=== PATIENT | male | born 1965 | race Caucasian/White ===

== ENCOUNTER 2017-05-21 11:06 | Day surgery (SDC) | payer OTHER ==
[2017-05-20 09:50] VITALS: BMI 50.0
[~2017-05-21 11:06] MED LIST: Lidocaine 1% PF 5 ML VIAL ONE; PROPOFOL 200 MG/20 ML VIAL ONE
[2017-05-21] MEDS ORDERED: Midazolam HCl 2 mg/2 ml Vial ONE (13:03)
--- NOTE | 2017-05-21 16:57 | OP ---
DATE OF PROCEDURE: 05/21/2017 INDICATION FOR PROCEDURE: Screening for malignant neoplasm of the colon, no family history of colon polyps or colon cancer. PROCEDURE: Colonoscopy with biopsy, polypectomy, and submucosal injection. DESCRIPTION OF PROCEDURE: After the risks and benefits of the procedure were explained to the patien t including risk of bleeding, infection, perforation, reaction to anesthesia and/or pain, informed co nsent was obtained. The patient was then taken back to the endoscopy suite where deep sedation was a dministered via propofol and anesthesia support. The standard colonoscope was then introduced into t he rectum with and advanced to the cecum as evidenced by the appendiceal orifice and an ileocecal earle ve. Careful examination of mucosa was then performed upon withdrawal with the findings listed below. The quality of the prep was excellent. The patient tolerated the procedure well with no immediate perioperative complications. STEVEN: Large external hemorrhoids as well as enlarged perianal skin tags noted on external exam. COLON FINDINGS: Normal appearing mucosa was seen at the appendiceal orifice and ileocecal valve, a 4 mm polyp was seen in the cecum adjacent to the appendiceal orifice and completely removed with cold snare polypectomy. The polyp was completely excised and retrieved and placed in a specimen jar for e valuation. A large, 3-4 cm multi-lobed polypoid mass was seen in the proximal ascending colon near t ileocecal valve. Given the size of this particular lesion and increased risk of perforation, en b loc resection was not attempted; instead multiple biopsies were taken of this lesion and placed in a specimen jar for evaluation. Approximately 7 mL of Eladia ink was placed as a tattoo on either side o f this particular lesion for future reference. Normal appearing mucosa was seen in the distal ascend ing colon, transverse colon, and descending colons. Scattered small diverticula were seen in the dis blake descending and sigmoid colons, a 5-6 mm polyp was seen in the sigmoid colon and completely remove d with cold snare polypectomy. It was retrieved and placed in specimen jar for evaluation. Normal m ucosa was then seen in the rectum. On retroflexion, small internal hemorrhoids were noted. IMPRESSION: 1. A 4 mm cecal polyp, status post cold snare polypectomy. 2. A large 3-4 cm multi-lobe polypoid mass was seen in the proximal ascending colon, status post mul tiple biopsies for evaluation and tattoo placement with Eladia ink. 3. A 5-6 mm polyp seen in the sigmoid colon and completely removed with cold snare polypectomy. 4. Mild sigmoid and descending diverticulosis. 5. Internal and external hemorrhoids. 6. Perianal skin tags. RECOMMENDATIONS: 1. We will follow up on pathology reports with repeat colonoscopy interval depending on pathology. 2. We will place consult for General Surgery consultation for evaluation of the large polypoid mass in the right colon and possible right hemicolectomy. 3. We would place the patient on high fiber diet given presence of hemorrhoids and diverticulosis. 4. Can use topical preparations for external hemorrhoids exacerbation. 5. We would have patient followup in the GI clinic in 2 weeks for biopsy results and establish furth er care for possible right hemicolectomy.
== END 2017-05-21 15:15 | disposition home or self-care (01) ==
LOC: SDC 11:06
PROVIDERS: ATTEND Internal Medicine
PROC: 0DBH8ZX Excision of Cecum, Via Natural or Artificial Opening Endoscopic, Diagnostic (ICD-10-PCS; principal; 2017-05-21)
PROC: 0DBK8ZX Excision of Ascending Colon, Via Natural or Artificial Opening Endoscopic, Diagnostic (ICD-10-PCS; principal; 2017-05-21)
PROC: 3E0H8GC Introduction of Other Therapeutic Substance into Lower GI, Via Natural or Artificial Opening Endoscopic (ICD-10-PCS; principal; 2017-05-21)
DX: Z12.11 Encounter for screening for malignant neoplasm of colon (principal); D12.5 Benign neoplasm of sigmoid colon; D12.2 Benign neoplasm of ascending colon; K63.5 Polyp of colon; K57.30 Diverticulosis of large intestine without perforation or abscess without bleeding; K64.8 Other hemorrhoids; K64.4 Residual hemorrhoidal skin tags; I10 Essential (primary) hypertension; E78.5 Hyperlipidemia, unspecified; E03.9 Hypothyroidism, unspecified; G89.29 Other chronic pain; M54.9 Dorsalgia, unspecified; Z87.891 Personal history of nicotine dependence; Z79.4 Long term (current) use of insulin; Z79.82 Long term (current) use of aspirin; Z79.899 Other long term (current) drug therapy; Z91.041 Radiographic dye allergy status
CPT/HCPCS: 36416; 88305; J2001; J2250; J2704